=== PATIENT | female | born 1965 | race African-American/Black ===

== ENCOUNTER 2022-07-05 17:15 | Emergency (ER) | payer OTHER ==
[~2022-07-05] VITALS: Ht 177.8 cm; Wt 80.0 kg
[2022-07-05 18:20] LABS: BASOPHILS % 0.3 % (0.0-2.0); EOSINOPHILS % 1.4 % (0.0-5.0); HEMATOCRIT. 39.5 % (36.0-48.0); HEMOGLOBIN. 13.1 g/dL (12.0-16.0); LYMPHOCYTES % 33.3 % (20.0-50.0); MEAN CORPUSCULAR HEMOGLOBIN 30.1 pg (28.0-32.0); MEAN CORPUSCULAR VOLUME 90.6 fL (81.0-99.0); MEAN PLATELET VOLUME 8.5 fl (7.4-10.4); MONOCYTES % 6.2 % (2.0-8.0); NEUTROPHILS % 58.8 % (40.0-76.0); PLATELET 193 x1000/uL (130-400); RED BLOOD CELL COUNT 4.36 mill/uL (4.2-5.4); RED CELL DISTRIBUTION WIDTH 13.8 % (11.6-14.6)
[2022-07-05 18:26] LABS: CHLORIDE 101 mEq/L (98-107)
[2022-07-05 18:41] LABS: PROTHROMBIN TIME 10.4 sec (9.6-11.0)
[2022-07-05] MEDS ORDERED: KCL 10MEQ/50ML PREMIX 50 ML IV ONE (20:00)
[2022-07-05] MEDS ORDERED: POTASSIUM CHLORIDE 20MEQ TABLET SR PO ONE (20:00)
[2022-07-05] MEDS ORDERED: KETOROLAC 15MG/ML VIAL IM ONE (20:45)
[2022-07-05] MEDS ORDERED: ASPIRIN 325MG TABLET PO ONE (21:00)
[2022-07-06 03:16] VITALS: BP 122/77
== END 2022-07-06 03:21 | disposition short-term general hospital (02) ==
LOC: ER 17:15
DX: R00.2 Palpitations (principal); I10 Essential (primary) hypertension; Z20.822 Contact with and (suspected) exposure to COVID-19
CPT/HCPCS: 36415; 71045; 80053; 84484; 85025; 85610; 87426; 93005; 96372; 99285; C9803; J1885; Z7610; J3480